=== PATIENT | male | born 1970 | race Caucasian/White ===

== ENCOUNTER 2018-05-02 18:58 | Inpatient (IN) | payer OTHER ==
[~2018-05-02] VITALS: Ht 175.3 cm; Wt 89.1 kg
[2018-05-02 19:55] LABS: BASOPHIL % 0.4 % (0-2); PLATELET COUNT 179 x10^3mcL (130-400); RED CELL DISTRIBUTION WIDTH 13.2 % (11.5-14.5)
[2018-05-02 19:56] LABS: UA SPECIFIC GRAVITY 1.025 (1.005-1.035); microscopic required? YES; urine erythrocyte 2+ (NEGATIVE)
[2018-05-02 20:06] LABS: CALCIUM 9.2 mg/dL (8.5-10.1); CARBON DIOXIDE 25.6 mmol/L (21-32); CHLORIDE SERUM 105 mmol/L (98-107); CREATININE SERUM 0.7 mg/dL (0.7-1.3); GFR1 > 60 mL/min; GLUCOSE SERUM 89 mg/dL (74-106); SODIUM SERUM 141 mmol/L (136-145)
[2018-05-02 20:11] LABS: ALBUMIN 4.2 g/dL (3.4-5.0); ALKALINE PHOSPHATASE 46 U/L (46-116); ALT/SGPT 32 U/L (16-63); AMYLASE 35 U/L (25-115); AST/SGOT 25 U/L (15-37); BILIRUBIN TOTAL 0.4 mg/dL (0.20-1.00); LIPASE 114 IU/L (73-393); TOTAL PROTEIN, SERUM 6.9 g/dL (6.4-8.2)
[2018-05-02 20:13] LABS: POTASSIUM SERUM 4.5 mmol/L (3.5-5.1)
[2018-05-02] MEDS ORDERED: ZESTRIL5 MG PO (20:36)
[2018-05-02] MEDS ORDERED: ZES10 PO (20:37)
[2018-05-02] MEDS ORDERED: LISINOPRIL10 MG PO (20:37)
[2018-05-02] MEDS ORDERED: LIPI20 PO (20:37)
[2018-05-02] MEDS ORDERED: WELLBUTRIN XL300 M1 PO (20:38)
[2018-05-02] MEDS ORDERED: ZOLOFT100 MG PO (20:38)
[2018-05-02 22:33] VITALS: BP 149/100
[2018-05-02 22:37] LABS: T3 TOTAL 1.04 ng/mL
[2018-05-02 22:41] VITALS: Ht 175.3 cm; Wt 89.1 kg
[2018-05-02 22:55] LABS: FREE T4 1.02 ng/dL (0.76-1.46); FREE THYROXINE INDEX 2.1 ug/dL (1.4-4.5); T4(THYROXINE) 6.5 ug/dL (4.7-13.3)
[2018-05-02 23:11] LABS: AMPHETAMINE QUAL UR NONE DETECTED (See below)
[2018-05-02 23:11] LABS: MAGNESIUM 1.8 mg/dL (1.8-2.4); PHOSPHOROUS 3.2 mg/dL (2.5-4.9)
[2018-05-03 00:14] VITALS: BP 153/97
[2018-05-03 05:38] VITALS: BP 106/62
[2018-05-03 05:39] VITALS: BP 106/62
[2018-05-03 06:22] LABS: BASOPHIL % 0.3 % (0-2); PLATELET COUNT 165 x10^3mcL (130-400); RED CELL DISTRIBUTION WIDTH 13.1 % (11.5-14.5)
[2018-05-03 06:27] LABS: CALCIUM 8.3 mg/dL (8.5-10.1); CARBON DIOXIDE 28.2 mmol/L (21-32); CHLORIDE SERUM 108 mmol/L (98-107); CREATININE SERUM 0.9 mg/dL (0.7-1.3); GFR1 > 60 mL/min; GLUCOSE SERUM 94 mg/dL (74-106); PHOSPHOROUS 3.6 mg/dL (2.5-4.9); POTASSIUM SERUM 5.1 mmol/L (3.5-5.1); SODIUM SERUM 139 mmol/L (136-145)
[2018-05-03 09:03] VITALS: BP 113/68
[2018-05-03 16:05] VITALS: BP 124/79
[2018-05-03 16:14] VITALS: BP 113/68
[2018-05-03] MEDS ORDERED: FLO4 PO (16:29)
[2018-05-03] MEDS ORDERED: MOT400 PO (16:33)
== END 2018-05-03 18:20 | disposition home or self-care (01) | DRG 694 ==
LOC: ED 18:58 → MU 21:46
PROVIDERS: Emergency Medicine; Family Medicine
DX: N20.0 Calculus of kidney (principal); I10 Essential (primary) hypertension; E78.00 Pure hypercholesterolemia, unspecified; F32.9 Major depressive disorder, single episode, unspecified; F17.210 Nicotine dependence, cigarettes, uncomplicated; F12.90 Cannabis use, unspecified, uncomplicated; E78.5 Hyperlipidemia, unspecified; F41.9 Anxiety disorder, unspecified; Z87.442 Personal history of urinary calculi; Z79.899 Other long term (current) drug therapy; Z90.89 Acquired absence of other organs; Z72.89 Other problems related to lifestyle; Z88.6 Allergy status to analgesic agent
CPT/HCPCS: 83880; 84439; J1885; J2270; J2405; J7030; Q0092